=== PATIENT | female | born 1995 | race Caucasian/White ===

== ENCOUNTER → 2019-01-25 | Outpatient (CLI) | payer BC ==
--- NOTE | 2019-01-25 10:48 | MR ---
Clinical history: 23-year-old 290 pound female with acute, bilateral, low back pain and "bilateral sciatica". Scan technique: Sagittal T1/T2/T2 fat saturation and unenhanced axial T1/T2 magnetic resonance images of the lumbar spine obtained while the patient was lying supine on the [employer] [place], [place]. All data archived in the PACS system for storage, reformatting axial/sagittal planes and study. Interpretation: Negative exam. 1. Normal signal density and height of the nucleus pulposus intervertebral discs at all levels lumbar spine. 2. No sign of pathologic skeletal lesion, lumbar fracture or dislocation (spondylolisthesis). Normal density, height and alignment. 3. Capacious bony spinal canal volume. 4. No sign of surgical disc herniation or extruded "free" intracanalicular disc fragment. 5. No intracanalicular soft tissue tumor mass. No congenital nerve root cysts.
== END ==
LOC: DL.MRI 09:33
PROVIDERS: ATTEND Nurse Practitioner
DX: M54.42 Lumbago with sciatica, left side (principal); M54.41 Lumbago with sciatica, right side
CPT/HCPCS: 72148